=== PATIENT | female | born 1980 | race African-American/Black ===

== ENCOUNTER 2017-10-27 19:47 | Emergency (ER) | payer SELFPAY ==
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
== END 2017-10-27 21:09 | disposition home or self-care (01) ==
LOC: SCSER 19:47
DX: M25.511 Pain in right shoulder (principal); F17.210 Nicotine dependence, cigarettes, uncomplicated; V43.62XA Car passenger injured in collision with other type car in traffic accident, initial encounter

== ENCOUNTER 2019-04-09 20:39 | Emergency (ER) | payer BC, SELFPAY | END 2019-04-09 22:30 | disposition home or self-care (01) | LOC: ERS 20:39 | DX: J18.9 Pneumonia, unspecified organism (principal); E11.9 Type 2 diabetes mellitus without complications; J45.909 Unspecified asthma, uncomplicated; F43.10 Post-traumatic stress disorder, unspecified; F32.9 Major depressive disorder, single episode, unspecified; E66.9 Obesity, unspecified; F17.210 Nicotine dependence, cigarettes, uncomplicated; Z79.51 Long term (current) use of inhaled steroids | CPT/HCPCS: 87804; 99283 ==

== ENCOUNTER 2019-04-30 15:04 | Emergency (ER) | payer BC ==
--- NOTE | 2019-04-30 15:36 | RAD ---
EXAM: 3 views of the right shoulder HISTORY: Shoulder pain since Tuesday COMPARISON: 10/27/2017 FINDINGS: There is no evidence of acute fracture or dislocation. No degenerative changes are present. No soft tissue swelling is seen. The visualized thorax is unremarkable. IMPRESSION: No evidence of acute osseous abnormality.
== END 2019-04-30 15:55 | disposition home or self-care (01) ==
LOC: ERS 15:04
DX: M25.511 Pain in right shoulder (principal); E11.9 Type 2 diabetes mellitus without complications; J45.909 Unspecified asthma, uncomplicated; E66.9 Obesity, unspecified; F43.10 Post-traumatic stress disorder, unspecified; F32.9 Major depressive disorder, single episode, unspecified; Z87.891 Personal history of nicotine dependence